=== PATIENT | male | born 1990 | race Caucasian/White ===

== ENCOUNTER 2022-11-10 11:06 | Emergency (ER) | payer MEDICAID, OTHER ==
[~2022-11-10] VITALS: Ht 185.4 cm; Wt 68.6 kg
[2022-11-10 11:43] LABS: Basophils # (auto) 0.1 10 ^3/uL (0-0.2); Basophils % (auto) 0.4 % (0.0-2.0); Eosinophils # (auto) 0 10 ^3/uL (0-0.8); Eosinophils % (auto) 0.2 % (0.0-7.0); Hematocrit 48.7 % (41.0-53.0); Hemoglobin 16.7 g/dL (13.5-17.5); Lymphocytes # (auto) 0.7 10 ^3/uL (0.4-5.4); Lymphocytes % (auto) 4.2 % (10.0-50.0); Mean Corpuscular Hemoglobin 28.2 pg (28.0-32.0); Mean Corpuscular Hgb Conc. 34.2 g/dL (32.0-36.0); Mean Corpuscular Volume 82.5 fL (80.0-100.0); Monocytes # (auto) 0.9 10 ^3/uL (0-1.3); Monocytes % (auto) 5.4 % (0.0-12.0); Neutrophils # (auto) 15.4 10 ^3/uL (1.6-8.6); Neutrophils % (auto) 89.8 % (37.0-80.0); Nucleated Red Blood Cells % 0.1 %; Red Cell Distribution Width 14.2 % (11.8-14.3); White Blood Cell 17.1 10^3/uL (4.4-10.8)
[2022-11-10 12:10] LABS: Albumin 3.7 g/dL (3.4-5.0); Calcium 8.8 mg/dL (8.5-10.1); Potassium 4.2 mmol/L (3.5-5.1)
[2022-11-10 12:15] LABS: BUN/Creatinine Ratio 13.4 (10.0-20.0); Bilirubin, Total 2.2 mg/dL (0.2-1.0)
[2022-11-10 13:04] LABS: Urine Bacteria NONE SEEN /hpf (None Seen); Urine Blood Negative /uL (Negative); Urine Mucus FEW (None Seen); Urine Specific Gravity 1.032 (1.001-1.035); Urine WBC 1 /hpf (0 - 3)
[2022-11-10 16:36] VITALS: BP 115/79
== END 2022-11-10 18:42 | disposition left against medical advice (07) ==
LOC: ER 11:06
DX: I24.9 Acute ischemic heart disease, unspecified (principal); R55 Syncope and collapse; F17.210 Nicotine dependence, cigarettes, uncomplicated; F12.10 Cannabis abuse, uncomplicated
CPT/HCPCS: 36415; 70450; 71045; 80053; 81001; 82962; 84484; 85025; 93005

== ENCOUNTER 2023-09-20 05:19 | Emergency (ER) | payer MEDICAID ==
[~2023-09-20] VITALS: Ht 185.4 cm; Wt 84.0 kg
[2023-09-20 07:48] VITALS: BP 131/89; PULSE 96; RESP 17; TEMP 98.1; O2SAT 95
[2023-09-20] MEDS ORDERED: AMOX500C2 PO (08:03)
[2023-09-20] MEDS ORDERED: HYDR-4902 PO (08:03)
[2023-09-20] MEDS: HYDROcodone-ACET 5/325MG TAB PO ONE (08:12)
[2023-09-20] MEDS: cefTRIAXone SOD 500 MG VL IM ONE (08:13)
== END 2023-09-20 08:20 | disposition home or self-care (01) ==
LOC: ER 05:19
DX: K02.9 Dental caries, unspecified (principal); F17.210 Nicotine dependence, cigarettes, uncomplicated; F12.10 Cannabis abuse, uncomplicated
CPT/HCPCS: 70110; 96372; 99283; J0696